=== PATIENT | male | born 1985 | race Two or more races ===

== ENCOUNTER 2018-07-11 17:15 | Emergency (ER) | payer OTHER ==
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
--- NOTE | 2018-07-11 18:38 | CT ---
INDICATION: Trauma. TECHNIQUE: Noncontrast axial images through the brain with sagittal and coronal reconstructions. COMPARISON: None. FINDINGS: No abnormal intracranial mass effect or midline shift. No intracranial hemorrhage. No abnormal areas of attenuation are seen within the brain. CSF spaces are age-appropriate and unremarkable. No skull fracture. The paranasal sinuses and mastoids are clear. IMPRESSION: No CT evidence of an acute intracranial abnormality. Dictated by Brandan Henry MD @ 07/11/2018 6:35:41 PM Please note that all CT scans at this facility use dose modulation, iterative reconstruction, and/or weight-based dosing when appropriate to reduce radiation dose to as low as reasonably achievable. Dictated by: Brandan Henry MD @ 07/11/2018 18:36:15 (Electronically Signed)
== END 2018-07-11 19:21 | disposition home or self-care (01) ==
LOC: MW.ED 17:15
DX: S09.90XA Unspecified injury of head, initial encounter (principal); W18.00XA Striking against unspecified object with subsequent fall, initial encounter
CPT/HCPCS: 70450; 70450-26; 99284-25

== ENCOUNTER 2021-11-29 17:40 | Emergency (ER) | payer OTHER | END 2021-11-29 19:11 | LOC: MW.ED 17:40 | DX: Z02.89 Encounter for other administrative examinations (principal); I25.10 Atherosclerotic heart disease of native coronary artery without angina pectoris | CPT/HCPCS: 99282 ==

== ENCOUNTER 2023-02-22 14:58 | Emergency (ER) | payer SELFPAY ==
[2023-02-22] MEDS ORDERED: Ibuprofen 600 MG Tab PO STA (16:07)
[2023-02-22] MEDS ORDERED: Acetaminophen 500 MG Tab PO STA (16:07)
== END 2023-02-22 18:07 ==
LOC: MW.ED 14:58
DX: M54.50 Low back pain, unspecified (principal); I25.10 Atherosclerotic heart disease of native coronary artery without angina pectoris; V80.010A Animal-rider injured by fall from or being thrown from horse in noncollision accident, initial encounter
CPT/HCPCS: 72100; 72220; 73521; 99283; A9270